=== PATIENT | female | born 1955 | race Hispanic/Latino ===

== ENCOUNTER 2016-10-28 17:42 | Emergency (ER) | payer OTHER ==
[2016-10-28] MEDS ORDERED: NAPROSYN500 MG PO (21:00)
[2016-10-28 21:08] VITALS: BP 158/86
== END 2016-10-28 21:12 | disposition home or self-care (01) | DRG 552 ==
LOC: ED 17:42
DX: S16.1XXA Strain of muscle, fascia and tendon at neck level, initial encounter (principal); I10 Essential (primary) hypertension; S39.012A Strain of muscle, fascia and tendon of lower back, initial encounter; V59.40XA Driver of pick-up truck or van injured in collision with unspecified motor vehicles in traffic accident, initial encounter

== ENCOUNTER 2022-01-15 12:16 | Emergency (ER) | payer OTHER ==
[~2022-01-15] VITALS: Ht 149.9 cm; Wt 88.0 kg
[~2022-01-15 12:16] MED LIST: ASPIRIN81 MG PO; LISINOPRIL10 MG PO; MELOXICAM7.5 MG PO; NAPROSYN500 MG PO; NORVASC PO; PROTONIX40 M2 PO; VITAMIN C500 MG PO; ZESTRIL5 M1 PO
[2022-01-15 13:08] VITALS: BP 161/81
[2022-01-15 13:31] VITALS: BP 172/73
[2022-01-15 14:31] VITALS: BP 128/71
[2022-01-15] MEDS ORDERED: NAPROXEN500 MG PO (14:45)
[2022-01-15] MEDS ORDERED: FLEXERIL5 M1 PO (14:45)
[2022-01-15 15:00] VITALS: BP 149/82
[2022-01-15 15:02] VITALS: BP 149/82
== END 2022-01-15 15:13 | disposition home or self-care (01) ==
LOC: ED 12:16
DX: S82.002A Unspecified fracture of left patella, initial encounter for closed fracture (principal); M47.816 Spondylosis without myelopathy or radiculopathy, lumbar region; I10 Essential (primary) hypertension; V44.5XXA Car driver injured in collision with heavy transport vehicle or bus in traffic accident, initial encounter; Z95.5 Presence of coronary angioplasty implant and graft
CPT/HCPCS: L1830

== ENCOUNTER 2023-01-18 16:45 | Emergency (ER) | payer MEDICARE, MEDICAID ==
[~2023-01-18] VITALS: Ht 149.9 cm; Wt 80.0 kg
[~2023-01-18 16:45] MED LIST changes: +FLEXERIL5 M1 PO; +NAPROXEN500 MG PO
[2023-01-18] MEDS ORDERED: NEURONTIN100 MG PO (17:44)
[2023-01-18] MEDS ORDERED: LORTAB 5/3255 MG PO (17:44)
[2023-01-18] MEDS ORDERED: VALACYCLOVIR HCL1 GM PO (17:44)
[2023-01-18 17:57] VITALS: BP 172/92
== END 2023-01-18 17:57 | disposition home or self-care (01) ==
LOC: ED 16:45
DX: B02.9 Zoster without complications (principal); I10 Essential (primary) hypertension; Z95.5 Presence of coronary angioplasty implant and graft

== ENCOUNTER 2024-02-24 10:58 | Day surgery (SDC) | payer MEDICARE, MEDICAID ==
[~2024-02-24] VITALS: Ht 149.9 cm; Wt 76.7 kg
[~2024-02-24 10:58] MED LIST changes: +AMOX/K CLAV875 M1 PO; +CRESTOR20 MG PO; +ISOSORB MONO10 MG PO; +LORTAB 5/3255 MG PO; +NEURONTIN100 MG PO; +PLAVIX75 MG PO; +PROLIA60 MG/ML SC; +TRAMADOL HCL50 MG PO; +VALACYCLOVIR HCL1 GM PO; +ZPAK PO
[2024-02-24] MEDS ORDERED: LACTATED RINGER'S 1,000 ML IV ONE (11:32)
[2024-02-24 13:21] VITALS: BP 170/83
[2024-02-24] MEDS ORDERED: GLYCOPYRROLATE 0.2 MG/ML IV ONE (17:58)
[2024-02-24] MEDS ORDERED: PROPOFOL 200 MG/20 ML VIAL IV ONE (17:58)
[2024-02-24] MEDS ORDERED: LABETALOL HCL 100 MG/20 ML VIAL IV ONE (17:58)
[2024-02-24] MEDS ORDERED: LIDOCAINE HCL 2% 2ML SDV IV ONE (17:58)
== END 2024-02-24 13:22 | disposition home or self-care (01) ==
LOC: ORM 10:58
PROVIDERS: ATTEND Internal Medicine Gastroenterology
PROC: 0DB98ZX Excision of Duodenum, Via Natural or Artificial Opening Endoscopic, Diagnostic (ICD-10-PCS; principal; 2024-02-24)
PROC: 0DB78ZX Excision of Stomach, Pylorus, Via Natural or Artificial Opening Endoscopic, Diagnostic (ICD-10-PCS; 2024-02-24)
PROC: 0DB48ZX Excision of Esophagogastric Junction, Via Natural or Artificial Opening Endoscopic, Diagnostic (ICD-10-PCS; 2024-02-24)
DX: K26.4 Chronic or unspecified duodenal ulcer with hemorrhage (principal); K29.71 Gastritis, unspecified, with bleeding; K31.89 Other diseases of stomach and duodenum; I10 Essential (primary) hypertension; K21.9 Gastro-esophageal reflux disease without esophagitis; Z79.899 Other long term (current) drug therapy